=== PATIENT | female | born 1945 | race Caucasian/White ===

== ENCOUNTER 2018-04-06 13:20 | Day surgery (SDC) | payer OTHER ==
[~2018-04-06] VITALS: Ht 160 cm; Wt 58.5 kg
[~2018-04-06 13:20] MED LIST: ASPI81CH PO; B Complete1 EACH; LEVSOD125 PO; MULVITMIND; POTBIC25
== END 2018-04-06 16:08 | disposition home or self-care (01) ==
LOC: ORSCSDS 13:20
PROVIDERS: Podiatrist
PROC: 0SQP0ZZ Repair Right Toe Phalangeal Joint, Open Approach (ICD-10-PCS; principal; 2018-04-06 14:30)
DX: M20.11 Hallux valgus (acquired), right foot (principal); L84 Corns and callosities; E03.9 Hypothyroidism, unspecified; Z79.899 Other long term (current) drug therapy; Z79.82 Long term (current) use of aspirin
CPT/HCPCS: J0690; J2250; J3010; J7120

== ENCOUNTER → 2019-04-01 | Outpatient (CLI) | payer OTHER | END | disposition home or self-care (01) | LOC: LAB SHORT 14:21 → PLD 14:21 | DX: D48.5 Neoplasm of uncertain behavior of skin (principal) | CPT/HCPCS: 88305 ==

== ENCOUNTER → 2019-04-16 | Outpatient (CLI) | payer OTHER | END | disposition home or self-care (01) | LOC: LAB SHORT 07:35 → PLD 07:35 | DX: L57.0 Actinic keratosis (principal) | CPT/HCPCS: 88305 ==

== ENCOUNTER → 2020-09-01 | Outpatient (CLI) | payer OTHER | END | disposition home or self-care (01) | LOC: PLD 17:12 → LAB SHORT 17:12 | DX: L98.499 Non-pressure chronic ulcer of skin of other sites with unspecified severity (principal) | CPT/HCPCS: 88305; 88312 ==

== ENCOUNTER 2022-03-16 09:15 | Day surgery (SDC) | payer OTHER ==
[~2022-03-16] VITALS: Ht 157.5 cm; Wt 55.9 kg
[~2022-03-16 09:15] MED LIST changes: +BIMATOPROST2.5 ML; +PRAV20 PO
--- NOTE | 2022-03-16 11:05 | NUR ---
03/16/22 1105 Danielito Mishra PT MONITORING BY EARL MONTANA RN.
== END 2022-03-16 12:00 | disposition home or self-care (01) ==
LOC: ORSCSDS 09:15
PROVIDERS: Orthopaedic Surgery
PROC: 0LN80ZZ Release Left Hand Tendon, Open Approach (ICD-10-PCS; principal; 2022-03-16 11:30)
PROC: 01N54ZZ Release Median Nerve, Percutaneous Endoscopic Approach (ICD-10-PCS; principal; 2022-03-16 11:30)
DX: M65.342 Trigger finger, left ring finger (principal); G56.03 Carpal tunnel syndrome, bilateral upper limbs; E03.9 Hypothyroidism, unspecified; E78.5 Hyperlipidemia, unspecified; Z87.891 Personal history of nicotine dependence; Z79.899 Other long term (current) drug therapy
CPT/HCPCS: J7120

== ENCOUNTER 2022-12-08 08:19 | Day surgery (SDC) | payer OTHER ==
[~2022-12-08] VITALS: Ht 157.5 cm; Wt 56.0 kg
[2022-12-08] MEDS ORDERED: CENTRUM SILVER1 EAC2 (08:40)
== END 2022-12-08 10:10 | disposition home or self-care (01) ==
LOC: ORSCSDS 08:19
PROVIDERS: Internal Medicine Gastroenterology
PROC: 0DBP8ZX Excision of Rectum, Via Natural or Artificial Opening Endoscopic, Diagnostic (ICD-10-PCS; principal; 2022-12-08 09:30)
DX: Z12.11 Encounter for screening for malignant neoplasm of colon (principal); Z86.010 Personal history of colon polyps; Z80.0 Family history of malignant neoplasm of digestive organs; D12.8 Benign neoplasm of rectum; K57.30 Diverticulosis of large intestine without perforation or abscess without bleeding; K64.8 Other hemorrhoids; Z79.899 Other long term (current) drug therapy
CPT/HCPCS: 88305; J2704; J7120

== ENCOUNTER 2024-05-13 11:23 | Inpatient (IN) | payer OTHER ==
[~2024-05-13] VITALS: Ht 157.5 cm; Wt 57.5 kg
[2024-05-13] VITALS (10 sets, daily range): BP systolic 99–176; BP diastolic 68–101
[~2024-05-13 11:23] MED LIST changes: -METO25ER PO
[2024-05-13] MEDS ORDERED: Nitroglycerin 1 INCH/GM PKT TOP ONE (11:45)
[2024-05-13] MEDS ORDERED: Atorvastatin 40 MG Tab PO SCH (12:00)
[2024-05-13 12:18] LABS: Magnesium, Blood 1.9 mg/dL (1.6-2.4)
[2024-05-13 12:20] LABS: Thyroid Stimulating Hormone 0.734 uIU/mL (0.360-4.800)
[2024-05-13 12:54] LABS: Anti-Xa UFH, PHA Monitoring <0.10 IU/mL; International Normalized Ratio 0.93
[2024-05-13] MEDS ORDERED: Heparin Sodium 5000 Units/ML 1ML MDV IV ONE (13:10)
[2024-05-13] MEDS ORDERED: Heparin Sodium,Porcine/0.5 NS 500 ML IV SCH (13:10)
[2024-05-13] MEDS ORDERED: Dose Adjust by Pharmacy XX STA (13:11)
[2024-05-13] MEDS ORDERED: NS 250 ML IV ONE (13:53)
[2024-05-13] MEDS ORDERED: Heparin Sodium 1000 Units/ML 10ML MDV ONE (13:53)
[2024-05-13] MEDS ORDERED: Verapamil HCL 2.5 MG/ML 2ML Injection ONE (13:53)
[2024-05-13] MEDS ORDERED: NS 1,000 ML IV ONE ×2 (13:53→14:37)
--- NOTE | 2024-05-13 14:27 | NUR ---
UPDATE PT TAKEN TO ARMATURE REWINDER FOR PROCEDURE. WILL AWAIT RETURN
[2024-05-13] MEDS ORDERED: FentaNYL Citrate 50 MCG/ML 2 ML Injection ONE (14:36)
[2024-05-13] MEDS ORDERED: Midazolam HCl 1MG / ML 2ML Vial ONE (14:37)
--- NOTE | 2024-05-13 15:16 | NUR ---
UPDATE PT RETURNED FROM THE REGISTERED DIETICIAN. VS STABLE. HR REMAINS NSR 70'S. PT DENIES ANY PAIN. RIGHT RADIAL SITE WITH TR BAND IN PLACE AND 10ML OF AIR IN BAND. NO BLEEDING, BRUISING OR HEMATOMA NOTED. ARM BOARD IN PLACE. PT EDUCATED ON RIGHT ARM RESTRICTIONS. PT PROVIDED EDUCATION ON T[place] CARDIOMYOPATHY.
--- NOTE | 2024-05-13 15:16 | NUR ---
UPDATE PT RETURNED FROM INORGANIC CHEMIST. VS STABLE. HR REMAINS NSR. PT DENIES ANY PAIN. RIGHT RADIAL SITE WITH TR BAND IN PLACE AND 10ML OF AIR IN BAND. NO BLEEDING, BRUISNG OR HEMATOMA. ARM BOARD IN PLACE AND PATIENT EDUCATED ON RIGHT ARM RESTRICTIONS. PT PROVIDED EDUCATION ON T[place].
[2024-05-13] MEDS ORDERED: Metoprolol Succinate 25 MG TABCR PO SCH (20:00)
--- NOTE | 2024-05-13 21:00 | NUR ---
ASSUMPTION OF CARE AFTER RECEIVING REPORT FROM INNA DOOLEY, THIS RN ASSUMED CARE AT APPROX 1914. PATIENT AWAKE, ALERT AND ORIENTED X4. PLAYING CARDS WITH DAUGHTER AT BEDSIDE. INDEPENDENT IN ROOM, WITH ALL ADLs. CALLS APPROPRIATELY FOR ASSISTANCE PRN. RECEPTIVE TO EDUCATION. MOVES ALL EXTREMITIES EQUALLY. AFEBRILE. TELEMETRY SHOWING SINUS 70s. BP STABLE, SBP 120s-130s. MAP >65. DENIES CHEST PAIN, PRESSURE. S/P ANGIOGRAM WITH R RADIAL SITE. TR BAND REMOVED AT APPROX 2034. SMALL HEMATOMA NOTED AROUND SITE. OTHERWISE SITE SOFT, NONTENDER. TEGADERM DRESSING APPLIED, C/D/I. ARMBOARD IN PLACE. MD CHAPARRO CONTACTED BY HAND STAMPER. HEPARIN GTT DC'd - PHARMACY NOTIFIED. PO METOPROLOL ORDERED, ADMINISTERED PER EMAR. ON ROOM AIR, SATs >90%. RR EVEN, UNLABORED. CALL LIGHT IN REACH.
--- NOTE | 2024-05-13 21:52 | NUR ---
MD CHAPARRO ROUNDED ON PATIENT TO DISCUSS ANGIOGRAM RESULTS, PLAN OF CARE. DAUGHTER AT BEDSIDE. PATIENT COMMUNICATING NEEDS EFFECTIVELY. RECEPTIVE TO EDUCATION, ASKING QUESTIONS PRN TO GAIN FURTHER UNDERSTANDING. NO NEW ORDERS RECEIVED BY MD.
[2024-05-14 03:40] VITALS: BP 111/60
[2024-05-14 04:13] LABS: BASOPHILS ABSOLUTE AUTO 0.05 K/mm3 (0.00-0.23); BASOPHILS PERCENT AUTO 1 % (0-2); EOSINOPHILS ABSOLUTE AUTO 0.21 K/mm3 (0.00-0.68); EOSINOPHILS PERCENT AUTO 4 % (0-6); Hemoglobin 13.6 g/dL (11.5-16.0); IMMATURE GRAN ABSOLUTE AUTO 0.01 K/mm3 (0.00-0.10); IMMATURE GRAN PERCENT AUTO 0 % (0-1); LYMPHOCYTES ABSOLUTE AUTO 1.29 K/mm3 (0.84-5.20); LYMPHOCYTES PERCENT AUTO 24 % (21-46); MONOCYTES ABSOLUTE AUTO 0.65 K/mm3 (0.16-1.47); MONOCYTES PERCENT AUTO 12 % (4-13); Mean Corpuscular HGB 32.9 pg (26.0-34.0); Mean Corpuscular Volume 97 fL (80-100); Mean Platelet Volume 9.4 fL (9.1-12.4); NEUTROPHILS ABSOLUTE AUTO 3.19 K/mm3 (1.96-9.15); NEUTROPHILS PERCENT AUTO 59 % (41-73); Platelet Count 233 K/mm3 (150-400); RDW Standard Deviation 43.2 fL (35.1-46.3); Red Blood Cell Count 4.13 M/mm3 (3.80-5.20)
[2024-05-14 04:34] LABS: Anion Gap 12 mmol/L (3-11); Blood Urea Nitrogen 14 mg/dL (8-24); Bun/Creatinine Ratio 23.4 (12.0-20.0); CHOL/HDL RATIO 2.9; CO2, Blood 23 mmol/L (21-32); Calcium, Blood 8.9 mg/dL (8.5-10.1); Chloride, Blood 109 mmol/L (98-108); Cholesterol 215 mg/dL (50-200); Glomerular Filtration Rate 93 (60-); Glucose, Blood 93 mg/dL (70-99); HDL Cholesterol 75 mg/dL (>39); LDL/HDL RATIO 1.6; Low Density Lipoprotein Chol 119 mg/dL (0-110); Potassium, Blood 3.9 mmol/L (3.5-5.5); Sodium, Blood 140 mmol/L (136-145); Triglycerides 106 mg/dL (30-160); Very Low Density Lipoprot Chol 21 mg/dL (6-32)
--- NOTE | 2024-05-14 05:21 | NUR ---
SHIFT SUMMARY NO ACUTE EVENTS SINCE PREVIOUS NOTES. PATIENT SLEPT T/O NIGHT, EASILY AROUSABLE WITH VERBAL STIMULI. INDEPENDENT IN ROOM. AFEBRILE. TELEMETRY SHOWING SINUS 60s. BP STABLE, SBP 110s-130s. MAP >65. DENIES CHEST PAIN, PRESSURE. SMALL HEMATOMA TO R RADIAL SITE IMPROVED. TEGADERM DRESSING C/D/I. SITE SOFT, NONTENDER. ARMBOARD IN PLACE. REMAINS ON ROOM AIR, SATs >90%. RR EVEN, UNLABORED. CALL LIGHT IN REACH. WILL CONTINUE TO MONITOR AND REPORT TO ONCOMING RN.
[2024-05-14] MEDS ORDERED: Levothyroxine Sodium 0.125 MG Tab PO SCH (06:00)
[2024-05-14 07:13] VITALS: BP 117/75
[2024-05-14] MEDS ORDERED: Aspirin 81 MG Chew PO SCH (09:00)
[2024-05-14] MEDS ORDERED: ASPI81CH PO (09:04)
[2024-05-14] MEDS ORDERED: METO25ER PO ×2 (09:04)
--- NOTE | 2024-05-14 09:59 | NUR ---
DISCHARGE SUMMARY: PT ALERT AND ORIENTED TO PERSON, PLACE, DATE, SITUATION. SHE DENIES ANY CHEST PAIN/PRESSURE, NUMB/TINGLING. VSS. DISCHARGE EDUCATION PROVIDED. EDUCATED PATIENT ON NEW MEDICATIONS INCLDUING THE IMPORTANCE OF CHECKING BLOOD PRESSURE/HEART RATE AND PARAMETERS TO FOLLOW WITH NEW MEDICATION. EDUCATED HER ON SIGNS OF INFECTION RELATED TO RADIAL SITE. RADIAL SITE DRESSED WITH TEGADERM AND INTACT. SLIGHT BRUSING BUT NO BLEEDING, SWELLING OR REDNESS. IV REMOVED, PRESSURE APPLIED AND DRESSED WITH GAUZE AND COBAN. PT TOLERATED WELL WITH NO COMPLICATIONS. PATIENT DID NOT HAVE ANY QUESTIONS OR CONCERNS. SHE LEFT VIA WHEELCHAIR AT 0918.
== END 2024-05-14 09:21 | disposition home or self-care (01) | DRG 281 ==
LOC: ER 11:23 → PCU 11:54
PROVIDERS: Student in an Organized Health Care Education/Training Program; ADMIT Internal Medicine
PROC: B2111ZZ Fluoroscopy of Multiple Coronary Arteries using Low Osmolar Contrast (ICD-10-PCS; principal; 2024-05-13)
DX: I21.4 Non-ST elevation (NSTEMI) myocardial infarction (principal); I51.81 Takotsubo syndrome; E03.9 Hypothyroidism, unspecified; E78.5 Hyperlipidemia, unspecified; I25.10 Atherosclerotic heart disease of native coronary artery without angina pectoris; Z79.890 Hormone replacement therapy
CPT/HCPCS: 36415; 71045; 76937; 80048; 80061; 83036; 83735; 84443; 84484; 85025; 85520; 85610; 85730; 93005; 93010; 93306; 93454; 99152; 99285-25; A9270; C1769; C1887; C1894; J1644; J2250; J3010; J7030; J7050; Q9967

== ENCOUNTER → 2024-05-13 | Outpatient (CLI) | payer OTHER ==
[~2024-05-13] MED LIST changes: -BIMATOPROST2.5 ML; +BIMATOPROST5 ML UD; +CENTRUM SILVER1 EAC2 PO; +METO25ER PO
[2024-05-13 10:30] LABS: BASOPHILS ABSOLUTE AUTO 0.03 K/mm3 (0.00-0.23); BASOPHILS PERCENT AUTO 1 % (0-2); EOSINOPHILS PERCENT AUTO 2 % (0-6); Hematocrit 40.9 % (33.0-51.0); Hemoglobin 14.1 g/dL (11.5-16.0); IMMATURE GRAN ABSOLUTE AUTO 0.01 K/mm3 (0.00-0.10); IMMATURE GRAN PERCENT AUTO 0 % (0-1); LYMPHOCYTES ABSOLUTE AUTO 1.19 K/mm3 (0.84-5.20); LYMPHOCYTES PERCENT AUTO 24 % (21-46); MONOCYTES ABSOLUTE AUTO 0.43 K/mm3 (0.16-1.47); MONOCYTES PERCENT AUTO 9 % (4-13); Mean Corpuscular HGB 33.4 pg (26.0-34.0); Mean Corpuscular HGB Conc 34.5 g/dL (31.5-36.5); Mean Corpuscular Volume 97 fL (80-100); Mean Platelet Volume 9.2 fL (9.1-12.4); NEUTROPHILS ABSOLUTE AUTO 3.24 K/mm3 (1.96-9.15); NEUTROPHILS PERCENT AUTO 65 % (41-73); Platelet Count 232 K/mm3 (150-400); Red Blood Cell Count 4.22 M/mm3 (3.80-5.20)
[2024-05-13 10:40] LABS: Albumin, Blood 3.7 g/dL (3.4-5.0); Albumin/Globulin Ratio 1.1 (0.8-1.8); Bun/Creatinine Ratio 21.5 (12.0-20.0); Calcium, Blood 8.8 mg/dL (8.5-10.1); Creatinine, Blood 0.65 mg/dL (0.40-1.00); Globulin, Blood 3.5 g/dL (2.2-4.0); Potassium, Blood 3.8 mmol/L (3.5-5.5); Total Protein, Blood 7.2 g/dL (6.4-8.2)
== END | disposition home or self-care (01) ==
LOC: LAB 10:26 → LAB SHORT 10:26
PROVIDERS: Family Medicine
DX: R07.9 Chest pain, unspecified (principal)
CPT/HCPCS: 80053; 84484; 85025; 85379

== ENCOUNTER → 2024-10-10 | Outpatient (CLI) | payer OTHER ==
[~2024-10-10] MED LIST changes: +METO25ER PO
[2024-10-10 09:24] LABS: BASOPHILS ABSOLUTE AUTO 0.02 K/mm3 (0.00-0.23); BASOPHILS PERCENT AUTO 0 % (0-2); EOSINOPHILS ABSOLUTE AUTO 0.06 K/mm3 (0.00-0.68); EOSINOPHILS PERCENT AUTO 1 % (0-6); Hematocrit 42.2 % (33.0-51.0); Hemoglobin 14.6 g/dL (11.5-16.0); IMMATURE GRAN ABSOLUTE AUTO 0.02 K/mm3 (0.00-0.10); IMMATURE GRAN PERCENT AUTO 0 % (0-1); LYMPHOCYTES ABSOLUTE AUTO 1.13 K/mm3 (0.84-5.20); LYMPHOCYTES PERCENT AUTO 23 % (21-46); MONOCYTES ABSOLUTE AUTO 0.45 K/mm3 (0.16-1.47); MONOCYTES PERCENT AUTO 9 % (4-13); Mean Corpuscular HGB Conc 34.6 g/dL (31.5-36.5); Mean Corpuscular Volume 95 fL (80-100); Mean Platelet Volume 9.1 fL (9.1-12.4); NEUTROPHILS ABSOLUTE AUTO 3.24 K/mm3 (1.96-9.15); NEUTROPHILS PERCENT AUTO 66 % (41-73); Platelet Count 268 K/mm3 (150-400); RDW Coefficient Variation 11.8 % (11.7-14.2); RDW Standard Deviation 41.1 fL (35.1-46.3); Red Blood Cell Count 4.43 M/mm3 (3.80-5.20); White Blood Cell Count 4.92 K/mm3 (4.00-11.30)
[2024-10-10 09:33] LABS: Bilirubin, Total 0.5 mg/dL (0.1-1.0); Bun/Creatinine Ratio 22.9 (12.0-20.0); Calcium, Blood 9.5 mg/dL (8.5-10.1); Creatinine, Blood 0.7 mg/dL (0.40-1.00); Globulin, Blood 3.9 g/dL (2.2-4.0); Potassium, Blood 4.1 mmol/L (3.5-5.5); Total Protein, Blood 7.9 g/dL (6.4-8.2)
== END | disposition home or self-care (01) ==
LOC: LAB 09:19 → LAB SHORT 09:19
PROVIDERS: Chiropractor
DX: R10.32 Left lower quadrant pain (principal)
CPT/HCPCS: 80053; 85025